=== PATIENT | male | born 1940 | race Caucasian/White ===

== ENCOUNTER 2017-02-06 20:19 | Emergency (ER) | payer OTHER, BC ==
[2017-02-06 20:26] VITALS: BP 143/83; PULSE 90; TEMP 97.8; BMI 23.5
[2017-02-06] MEDS ORDERED: DIPHTH,PERTUSS(ACELL),TET VAC 0.5 ML VIAL IM ONE (20:38)
[2017-02-06] MEDS ORDERED: ACETAMINOPHEN 325 MG TABLET (FP) PO ONE (20:38)
[2017-02-06] MEDS ORDERED: ACETAMINOPHEN 325 MG TABLET (FP) ONE (20:40)
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
== END 2017-02-06 22:24 | disposition home or self-care (01) ==
LOC: JER 20:19
PROC: 3E0234Z Introduction of Serum, Toxoid and Vaccine into Muscle, Percutaneous Approach (ICD-10-PCS; principal; 2017-02-06)
DX: S09.8XXA Other specified injuries of head, initial encounter (principal); Y04.2XXA Assault by strike against or bumped into by another person, initial encounter; Y93.89 Activity, other specified; Y92.480 Sidewalk as the place of occurrence of the external cause; Y99.8 Other external cause status; Y07.9 Unspecified perpetrator of maltreatment and neglect
CPT/HCPCS: 70450-TC; 90471; 99285-25

== ENCOUNTER 2021-12-07 05:01 | Day surgery (SDC) | payer OTHER, BC ==
[2021-12-03 15:45] VITALS: BMI 20.7
[2021-12-07 10:42] VITALS: BP 104/59; PULSE 54; RESP 14; TEMP 97.5
== END 2021-12-07 10:51 | disposition home or self-care (01) ==
LOC: JASU-ENDO 05:01
PROVIDERS: ATTEND Internal Medicine Gastroenterology
PROC: 0DBL8ZX Excision of Transverse Colon, Via Natural or Artificial Opening Endoscopic, Diagnostic (ICD-10-PCS; 2021-12-07)
PROC: 0DBH8ZX Excision of Cecum, Via Natural or Artificial Opening Endoscopic, Diagnostic (ICD-10-PCS; principal; 2021-12-07 09:00)
DX: Z12.11 Encounter for screening for malignant neoplasm of colon (principal); D12.0 Benign neoplasm of cecum; K63.89 Other specified diseases of intestine; K57.30 Diverticulosis of large intestine without perforation or abscess without bleeding; Z86.010 Personal history of colon polyps
CPT/HCPCS: 88305-TC

== ENCOUNTER 2022-01-24 15:34 | Inpatient (IN) | payer OTHER, BC ==
[2022-01-24] MEDS ORDERED: ACETAMINOPHEN 1000 MG/100 ML BAG IVPB ONE (16:50)
[2022-01-24] MEDS ORDERED: ACETAMINOPHEN INJECTION 100 ML IVPB ONE (17:03)
[2022-01-24 17:06] LABS: BASO % 0.4 % (0-2.0); EOS % 1.7 % (0-4.5); HEMATOCRIT 36.7 % (35.4-49); HEMOGLOBIN 12.1 GM/dL (11.7-16.9); LYMPH % 29.4 % (8-40); MCH 31.3 pg (25.7-33.7); MEAN CELL VOLUME 94.9 fl (80-96); MEAN PLT VOLUME 9.1 fl (7.5-11.1); MONO % 12.2 % (3.8-10.2); NEUT % 56.3 % (42.8-82.8); PLATELET COUNT 197 10^3/uL (134-434); RBC 3.87 M/mm3 (4.00-5.60); RDW 14.8 % (11.9-15.9); WHITE BLOOD COUNT 5.5 K/mm3 (4.0-10.0)
[2022-01-24 17:23] LABS: CALCIUM 8.6 mg/dL (8.5-10.1)
[2022-01-24 17:24] LABS: ALBUMIN 3.3 g/dl (3.4-5.0); BLOOD UREA NITROGEN 17.2 mg/dL (7-18)
[2022-01-24 17:27] LABS: PHOSPHOROUS 3.8 mg/dL (2.5-4.9)
[2022-01-24 17:28] LABS: TOT PROT 6.4 g/dl (6.4-8.2)
[2022-01-24 17:29] LABS: BILIRUBIN,TOTAL 0.4 mg/dL (0.2-1)
[2022-01-24] MEDS ORDERED: ALPRAZolam 0.25 MG TABLET PO ONE (22:04)
[2022-01-24] MEDS ORDERED: ALPRAZolam 0.25 MG TABLET ONE (22:12)
[2022-01-24] MEDS ORDERED: METOPROLOL TARTRATE 5 MG/5 ML VIAL IVPUSH PRN (23:32)
[2022-01-25] MEDS ORDERED: APIXABAN 5 MG TABLET ONE ×3 (00:45→22:35)
[2022-01-25] MEDS ORDERED: METOPROLOL TARTRATE 25 MG TABLET (FP) ONE ×4 (00:45→22:35)
[2022-01-25] MEDS: METOPROLOL TARTRATE 25 MG TABLET (FP) PO SCH ×3 (01:39→22:46)
[2022-01-25] MEDS: APIXABAN 5 MG TABLET PO SCH ×3 (01:39→22:46)
[2022-01-25] MEDS ORDERED: MELATONIN 5 MG TABLETS PO ONE (02:10)
[2022-01-25] MEDS ORDERED: MELATONIN 5 MG TABLETS ONE (02:13)
[2022-01-25 07:28] LABS: BASO % 0.2 % (0-2.0); EOS % 0.9 % (0-4.5); HEMATOCRIT 33.8 % (35.4-49); HEMOGLOBIN 11.6 GM/dL (11.7-16.9); LYMPH % 13.1 % (8-40); MCH 32.3 pg (25.7-33.7); MCHC 34.4 g/dl (32.0-35.9); MEAN PLT VOLUME 8.6 fl (7.5-11.1); MONO % 7.9 % (3.8-10.2); NEUT % 77.9 % (42.8-82.8); PLATELET COUNT 172 10^3/uL (134-434); RBC 3.59 M/mm3 (4.00-5.60); RDW 14.8 % (11.9-15.9); WHITE BLOOD COUNT 8.9 K/mm3 (4.0-10.0)
[2022-01-25 07:49] LABS: CREATININE 0.8 mg/dL (0.55-1.3)
[2022-01-25 07:52] LABS: TOT PROT 5.7 g/dl (6.4-8.2)
[2022-01-25 07:56] LABS: ALBUMIN 2.9 g/dl (3.4-5.0)
[2022-01-25 07:58] LABS: BILIRUBIN,TOTAL 0.5 mg/dL (0.2-1); PHOSPHOROUS 3.3 mg/dL (2.5-4.9)
[2022-01-25] MEDS ORDERED: LORazepam 0.5 MG TABLET PO ONE (10:08)
[2022-01-25] MEDS ORDERED: LORazepam 0.5 MG TABLET ONE (10:13)
[2022-01-25 20:18] LABS: EPI CELLS 2 /uL (0-25.1); HYALINE CASTS 0 /uL (0-3.1); PH,URINE 5.5 (5.0-8.0); URINE APPEARANCE CLEAR; URINE BACTERIA 0 /uL (0-1359); URINE BILIRUBIN NEGATIVE (NEGATIVE); URINE COLOR YELLOW; URINE GLUCOSE (UA) NEGATIVE (NEGATIVE); URINE KETONE TRACE (NEGATIVE); URINE LEUK ESTERASE NEGATIVE (NEGATIVE); URINE NITRITE NEGATIVE (NEGATIVE); URINE PROTEIN 1+ (NEGATIVE); URINE RBC 5 /uL (0-23.9); URINE WBC 2 /uL (0-25.8)
[2022-01-25] MEDS ORDERED: ROSUVASTATIN CA 20 MG TABLET ONE (22:35)
[2022-01-25] MEDS: ROSUVASTATIN CA 10 MG TABLET PO SCH (22:46)
[2022-01-26 01:48] VITALS: BMI 21.9
[2022-01-26] MEDS: METOPROLOL TARTRATE 25 MG TABLET (FP) PO SCH (09:27)
[2022-01-26] MEDS: APIXABAN 5 MG TABLET PO SCH ×2 (09:27→21:00)
[2022-01-26] MEDS: LISINOPRIL 10 MG TABLET PO SCH (11:12)
[2022-01-26] MEDS ORDERED: FUROSEMIDE 40 MG/4 ML INJECTABLE VIAL IVPUSH ONE (11:50)
[2022-01-26] MEDS: ROSUVASTATIN CA 10 MG TABLET PO SCH (21:00)
[2022-01-26 23:22] VITALS: RESP 20
[2022-01-27 09:31] LABS: CALCIUM 8.5 mg/dL (8.5-10.1)
[2022-01-27 09:32] LABS: BLOOD UREA NITROGEN 21.4 mg/dL (7-18)
[2022-01-27 09:35] LABS: CREATININE 1.1 mg/dL (0.55-1.3)
[2022-01-27] MEDS ORDERED: metoPROLOL SUCCINATE 25 MG TAB.SR.24H (FP) PO SCH ×2 (10:00→22:00)
[2022-01-27] MEDS: LISINOPRIL 10 MG TABLET PO SCH (10:03)
[2022-01-27] MEDS: APIXABAN 5 MG TABLET PO SCH (10:03)
[2022-01-27 13:04] VITALS: BP 118/66; PULSE 102; TEMP 97.6
== END 2022-01-27 13:56 | disposition home or self-care (01) | DRG 308 ==
LOC: JER 15:34 → JERBED 20:57 → OBSVTOIN 20:57 → J4S 01-26 00:47
PROVIDERS: ADMIT Internal Medicine
DX: I48.91 Unspecified atrial fibrillation (principal); I50.23 Acute on chronic systolic (congestive) heart failure; J90 Pleural effusion, not elsewhere classified; J06.9 Acute upper respiratory infection, unspecified; I42.8 Other cardiomyopathies; E78.5 Hyperlipidemia, unspecified; Z85.46 Personal history of malignant neoplasm of prostate; K21.9 Gastro-esophageal reflux disease without esophagitis; C43.22 Malignant melanoma of left ear and external auricular canal; I45.10 Unspecified right bundle-branch block; Z88.0 Allergy status to penicillin
CPT/HCPCS: 0241U-QW; 36415; 71046-TC-FY; 80048; 80053; 80061; 81003; 83735; 84100; 84443; 84484; 85025; 93005; 93010; 93306-TC; 99285-25

== ENCOUNTER 2022-04-15 18:07 | Emergency (ER) | payer OTHER, BC ==
[2022-04-15 18:38] VITALS: BP 147/89; PULSE 100; RESP 18; TEMP 97.6; BMI 19.9
[2022-04-15] MEDS ORDERED: SODIUM CHLORIDE 0.9% 1000 ML INFUS.BAG IV ONE (18:42)
[2022-04-15 19:06] LABS: HEMATOCRIT 37.9 % (35.4-49); MCH 32.2 pg (25.7-33.7); MCHC 34.4 g/dl (32.0-35.9); MEAN CELL VOLUME 93.7 fl (80-96); MEAN PLT VOLUME 8.4 fl (7.5-11.1); PLATELET COUNT 197.1 10^3/uL (134-434); RBC 4.05 10^6/uL (4.00-5.60); RDW 15.8 % (11.9-15.9); WHITE BLOOD COUNT 7.7 10^3/uL (4.0-10.8)
[2022-04-15 19:13] LABS: INR 1.56 (0.83-1.09)
[2022-04-15 19:16] LABS: ACTIVATED PTT 39.6 SECONDS (25.2-36.5)
[2022-04-15 19:20] LABS: BILIRUBIN,TOTAL 0.9 mg/dl (0.2-1); CREATININE 1.1 mg/dl (0.55-1.3)
[2022-04-15 19:38] LABS: PLATELET ESTIMATE ADEQUATE
== END 2022-04-15 21:22 | disposition home or self-care (01) ==
LOC: FER 18:07
DX: K40.90 Unilateral inguinal hernia, without obstruction or gangrene, not specified as recurrent (principal); R10.31 Right lower quadrant pain
CPT/HCPCS: 36415; 74177-TC; 80053; 83605; 83690; 85025; 85610; 85730; 86850; 86900; 86901; 93005; 99284-25; Q9967

== ENCOUNTER 2023-07-13 04:26 | Day surgery (SDC) | payer OTHER, BC ==
[2023-07-08 14:23] VITALS: BMI 19.9
[~2023-07-13 04:26] MED LIST: ACETAMINOPHEN 325 MG TABLET (FP) PO PRN
[2023-07-13] MEDS ORDERED: TETRACAINE 0.5% OPHTH SOLN 2 ML BOTTLE ONE (07:21)
[2023-07-13] MEDS ORDERED: TRIAMCINOLONE ACET 40MG/1ML VIAL ONE (07:21)
[2023-07-13] MEDS ORDERED: POVIDONE-IODINE 5% OPHTHALMIC PREP 30 ML SOLUTION ONE (07:22)
[2023-07-13] MEDS ORDERED: OFLOXACIN 0.3% OPHTHALMIC SOLUTION 5 ML BOTTLE ONE (09:07)
[2023-07-13] MEDS: OFLOXACIN 0.3% OPHTHALMIC SOLUTION 5 ML BOTTLE OP SCH (09:10)
[2023-07-13 09:48] VITALS: RESP 20
[2023-07-13] MEDS ORDERED: MIDAZOLAM HCL 2 MG/2 ML SINGLE DOSE VIAL ONE (11:15)
[2023-07-13] MEDS: TETRACAINE 0.5% OPHTH SOLN 2 ML BOTTLE TP ONE (11:20)
[2023-07-13] MEDS: POVIDONE-IODINE 5% OPHTHALMIC PREP 30 ML SOLUTION OS ONE (11:23)
[2023-07-13] MEDS: LIDOCAINE 1%/EPI 1:100000 (20 ML MULTI DOSE VIAL) IJ ONE (11:27)
[2023-07-13] MEDS: BSS (NA/CA/MG/K) BALANCED SALT SOLUTION OPHTH SOLN 15 ML BOTTLE OS ONE (11:27)
[2023-07-13] MEDS ORDERED: ONDANSETRON 4 MG/2 ML VIAL ONE (11:34)
[2023-07-13] MEDS: TRIAMCINOLONE ACET 40MG/1ML VIAL IJ ONE (11:43)
[2023-07-13] MEDS ORDERED: ACETAMINOPHEN 325 MG TABLET (FP) ONE (12:04)
[2023-07-13 14:47] VITALS: TEMP 97.5
[2023-07-13 14:49] VITALS: BP 103/60; PULSE 78
== END 2023-07-13 12:47 | disposition home or self-care (01) ==
LOC: JASU-SURG 04:26
PROVIDERS: ATTEND Ophthalmology
PROC: 08U107Z Supplement of Left Eye with Autologous Tissue Substitute, Open Approach (ICD-10-PCS; principal; 2023-07-13 11:00)
DX: H11.032 Double pterygium of left eye (principal)
CPT/HCPCS: 88304-TC; V2790

== ENCOUNTER 2023-10-27 15:04 | Emergency (ER) | payer OTHER, BC ==
[2023-10-27 15:22] VITALS: BP 105/61; PULSE 88; RESP 18; TEMP 97.7; BMI 19.2
[2023-10-27 16:24] LABS: HEMATOCRIT 38.6 % (35.4-49); HEMOGLOBIN 12.3 G/dL (11.7-16.9); MCH 31.6 pg (25.7-33.7); MCHC 31.8 g/dl (32.0-35.9); MEAN CELL VOLUME 99.4 fl (80-96); MEAN PLT VOLUME 8.4 fl (7.5-11.1); PLATELET COUNT 259.9 10^3/uL (134-434); RBC 3.88 10^6/uL (4.00-5.60); RDW 14.7 % (11.9-15.9); WHITE BLOOD COUNT 9.5 10^3/uL (4.0-10.8)
[2023-10-27 17:03] LABS: PLATELET ESTIMATE ADEQUATE
[2023-10-27 17:06] LABS: ALBUMIN 3.9 g/dl (3.4-5.0); CALCIUM 9.2 mg/dl (8.5-10.1); CREATININE 1.1 mg/dl (0.6-1.3); POTASSIUM 4.2 mmol/L (3.5-5.1); TOT PROT 6.7 g/dl (6.4-8.2)
[2023-10-27 17:30] LABS: ERYTHROCYTE SEDIMENTATION RATE 25 mm/hr (0-20)
== END 2023-10-27 17:55 | disposition home or self-care (01) ==
LOC: FER 15:04
DX: M25.522 Pain in left elbow (principal); M25.422 Effusion, left elbow; L08.9 Local infection of the skin and subcutaneous tissue, unspecified; Z20.822 Contact with and (suspected) exposure to COVID-19
CPT/HCPCS: 0241U-QW; 36415; 80053; 85027; 85651; 86140; 87070; 87186; 87205; 99283-25